=== PATIENT | male | born 1995 | race Caucasian/White ===

== ENCOUNTER 2023-02-23 12:10 | Emergency (ER) | payer MEDICAID ==
[~2023-02-23] VITALS: Ht 172.7 cm; Wt 86.2 kg
[2023-02-23 12:21] VITALS: BP 136/86
--- NOTE | 2023-02-23 12:28 | NUR ---
ASSESMENT PER TRIAGE. STATES NORMALLY USES O2, HOWEVER DID NOT BRING IT TODAY WHILE DROPPING OFF DAUGHTER. PT RESIDES IN [place] WARD.
[2023-02-23] MEDS ORDERED: diphenhydrAMINE 50 MG/ML VIAL IVP ONE ×2 (13:10→15:20)
[2023-02-23] MEDS ORDERED: HYDROmorphone PFS 2 MG/ML SYR IVP ONE ×2 (13:10→14:15)
[2023-02-23 13:30] LABS: BASOPHILS % (AUTO) 0.1 % (0.0-2.0); HEMATOCRIT 37.1 % (36-52); HEMOGLOBIN 11.9 g/dL (12.0-18.0); LYMPHOCYTES # (AUTO) 0.5 K/uL (2.0-11.5); LYMPHOCYTES % (AUTO) 4.5 % (20.5-51.1); MEAN CORPUSCULAR HEMOGLOBIN 29 pg (27-31); MEAN CORPUSCULAR HGB CONC 32 g/dL (33-37); MEAN CORPUSCULAR VOLUME 90.6 fL (80-94); MONOCYTES # (AUTO) 0.5 K/uL (0.8-1.0); MONOCYTES % (AUTO) 4.8 % (1.7-9.3); NEUTROPHILS # (AUTO) 10.3 K/uL (1.8-7.7); NEUTROPHILS % (AUTO) 90.6 % (42.2-75.2); PLATELET COUNT (AUTO) 304 K/uL (140-450); RED CELL DISTRIBUTION WIDTH 18.2 % (11.6-13.7); WHITE BLOOD COUNT (AUTO) 11.3 K/uL (4.8-10.8)
[2023-02-23 13:57] LABS: ANION GAP 15.3 (8-16); CARBON DIOXIDE 25.8 mmol/L (21-32); CREATININE 1.1 mg/dL (0.6-1.3); POTASSIUM 4.1 mmol/L (3.5-5.1); TOTAL BILIRUBIN 0.2 mg/dL (0.0-1.0)
--- NOTE | 2023-02-23 14:22 | NUR ---
ACCESSED GISELLA CATH PER PT REQUEST, REFUSED IV START
--- NOTE | 2023-02-23 16:08 | NUR ---
REFUSED BENADRYL, WANTS DILAUDID. PT NOW SAYS HE HAD CT 3 DAYS AGO FOR "THE SAME THING", DID NOT MENTION TO MD WHEN TOLD HE WILL GET A CT SCAN FOR HIS SOB
[2023-02-23] MEDS ORDERED: HYDROmorphone 1 MG/ML AMP ONE (16:26)
[2023-02-23 17:07] VITALS: BP 132/76
--- NOTE | 2023-02-23 17:07 | NUR ---
Patient discharged with v/s stable. Written and verbal after care instructions given and explained. Patient verbalized understanding. Ambulatory with steady gait. All questions addressed prior to discharge. Advised to follow up with PMD.
== END 2023-02-23 17:07 | disposition home or self-care (01) ==
LOC: MED 12:10
DX: R07.9 Chest pain, unspecified (principal); R06.02 Shortness of breath; Z79.899 Other long term (current) drug therapy
CPT/HCPCS: 36415; 71045; 80053; 84484; 85025; 93005; 96374; 96375; 96376; 99285; J1170; J1200

== ENCOUNTER 2023-02-24 14:38 | Emergency (ER) | payer MEDICAID ==
[~2023-02-24] VITALS: Ht 165.1 cm; Wt 97.1 kg
[2023-02-24 16:00] VITALS: BP 143/90
[2023-02-24 18:21] VITALS: BP 129/97
--- NOTE | 2023-02-24 21:13 | NUR ---
PT REQUESTED TO S/W THIS RN. THIS RN S/W WITH PT DISCUSSING PHYSCIAN PLAN OF CARE. PT OFFERED TYLENOL AT AND REQUESTING CT TO BE COMPLETE PRIOR TO ANY OTHER STRONGER PAIN MEDICAITON. PT DECLINED CT AND TYLENOL STATING "TYLENOL IS NOT GOING TO WORK FOR ME. I'M A CANCER PATIENT. I WANT SOMETHING STRONGER." ATTEMPTED TO REASON WITH PATIENT AND PATIENT ADAMANT ABOUT STRONGER MEDICATION. PT STATES "THATS FINE, I'M JUST GOING TO LEAVE.". DR. RIVERA NOTIFIED.
== END 2023-02-24 21:13 | disposition left against medical advice (07) ==
LOC: MED 14:38
DX: R06.02 Shortness of breath (principal); R07.81 Pleurodynia; Z53.21 Procedure and treatment not carried out due to patient leaving prior to being seen by health care provider
CPT/HCPCS: 99281

== ENCOUNTER 2023-03-01 12:21 | Inpatient (IN) | payer MEDICAID ==
[~2023-03-01] VITALS: Ht 172.7 cm; Wt 80.5 kg
[2023-03-01 12:28] VITALS: BP 130/84
[2023-03-01] MEDS ORDERED: HYDROmorphone PFS 2 MG/ML SYR IVP ONE (13:10)
[2023-03-01] MEDS ORDERED: diphenhydrAMINE 50 MG/ML VIAL IVP ONE (13:10)
[2023-03-01 13:58] LABS: BASOPHILS % (AUTO) 0.4 % (0.0-2.0); EOSINOPHILS % (AUTO) 0.7 % (0.0-4.0); HEMATOCRIT 32.6 % (36-52); HEMOGLOBIN 10.7 g/dL (12.0-18.0); LYMPHOCYTES # (AUTO) 0.8 K/uL (2.0-11.5); LYMPHOCYTES % (AUTO) 11.9 % (20.5-51.1); MEAN CORPUSCULAR HEMOGLOBIN 29 pg (27-31); MEAN CORPUSCULAR HGB CONC 33 g/dL (33-37); MEAN CORPUSCULAR VOLUME 89.5 fL (80-94); MONOCYTES # (AUTO) 0.5 K/uL (0.8-1.0); MONOCYTES % (AUTO) 7.6 % (1.7-9.3); NEUTROPHILS # (AUTO) 5.3 K/uL (1.8-7.7); NEUTROPHILS % (AUTO) 79.4 % (42.2-75.2); PLATELET COUNT (AUTO) 232 K/uL (140-450); RED BLOOD CELL COUNT(AUTO) 3.64 MIL/uL (4.20-6.10); RED CELL DISTRIBUTION WIDTH 18.1 % (11.6-13.7); WHITE BLOOD COUNT (AUTO) 6.7 K/uL (4.8-10.8)
[2023-03-01 14:05] LABS: ALBUMIN 3.3 g/dL (3.4-5.0); ANION GAP 11.3 (8-16); CARBON DIOXIDE 28.2 mmol/L (21-32); CREATININE 0.9 mg/dL (0.6-1.3); POTASSIUM 3.5 mmol/L (3.5-5.1); TOTAL BILIRUBIN 0.2 mg/dL (0.0-1.0)
[2023-03-01 17:29] VITALS: BP 138/62
== END 2023-03-01 17:24 | disposition left against medical advice (07) | DRG 203 ==
LOC: MED 12:21 → MTU 16:23 → MMU 16:23
PROVIDERS: ADMIT Family Medicine; ATTEND Family Medicine
DX: R07.9 Chest pain, unspecified (principal); C62.92 Malignant neoplasm of left testis, unspecified whether descended or undescended; C78.00 Secondary malignant neoplasm of unspecified lung; Z20.822 Contact with and (suspected) exposure to COVID-19; Z79.01 Long term (current) use of anticoagulants; Z91.041 Radiographic dye allergy status; Z86.718 Personal history of other venous thrombosis and embolism
CPT/HCPCS: 36415; 71045; 80053; 85025; 85379; 93005; 93970; 96374; 96375; 99285; J1170; J1200; Q0092